=== PATIENT | male | born 1945 | race Caucasian/White ===

== ENCOUNTER 2020-09-16 05:25 | Day surgery (SDC) | payer OTHER ==
[~2020-09-16 05:25] MED LIST: BENZONATATE150 MG PO; CHILDREN'S ASPI81 MG PO; JANUVIA100 MG PO; LIPITOR40 M1 PO; SYNTHROID125 MCG PO; TOPROL XL100 M1 PO; ZETIA10 MG PO; ZYLOPRIM300 MG PO
[2020-09-29] MEDS ORDERED: NEURONTIN800 MG (09:00)
== END 2020-09-16 14:40 | disposition home or self-care (01) ==
LOC: EDBD → CIR.AMB 05:25 → CLINIC 08:46 → CIR.AMB 08:56 → CLINIC 09:26 → CIR.AMB 09:30
PROVIDERS: ATTEND Specialist
DX: C34.82 Malignant neoplasm of overlapping sites of left bronchus and lung (principal); Z20.828 Contact with and (suspected) exposure to other viral communicable diseases
CPT/HCPCS: 36561; C1751

== ENCOUNTER 2020-09-30 05:45 | Day surgery (SDC) | payer OTHER ==
[~2020-09-30 05:45] MED LIST changes: +NEURONTIN800 MG
== END 2020-09-30 11:35 | disposition home or self-care (01) ==
LOC: CIR.AMB 05:45
PROVIDERS: ATTEND Specialist
DX: T82.598A Other mechanical complication of other cardiac and vascular devices and implants, initial encounter (principal)